=== PATIENT | male | born 1980 | race Caucasian/White ===

== ENCOUNTER 2017-10-27 09:03 | Emergency (ER) | payer BC ==
--- NOTE | 2017-10-27 09:11 | EDM.PDOC ---
ED HPI GENERAL MEDICAL PROBLEM - General Chief Complaint: Flank Pain Stated Complaint: BACK PAIN Time Seen by Provider: 10/27/17 09:11 Source of Information: Reports: Patient - History of Present Illness INITIAL COMMENTS - FREE TEXT/NARRATIVE: HISTORY AND PHYSICAL: History of present illness: [Patient presents with 8 out of 10 left flank pain radiating to the groin and around his abdomen for several hours prior to arrival no fever nausea vomiting chills sweats ] Review of systems: As per history of present illness and below otherwise all systems reviewed and negative. Past medical history: As per history of present illness and as reviewed below otherwise noncontributory. Surgical history: As per history of present illness and as reviewed below otherwise noncontributory. Social history: No reported history of drug or alcohol abuse. Family history: As per history of present illness and as reviewed below otherwise noncontributory. Physical exam: HEENT: Atraumatic, normocephalic, pupils reactive, negative for conjunctival pallor or scleral icterus, mucous membranes moist, throat clear, neck supple, nontender, trachea midline. Lungs: Clear to auscultation, breath sounds equal bilaterally, chest nontender. Heart: S1S2, regular, negative for clicks, rubs, or JVD. Abdomen: Soft, nondistended, nontender. Negative for masses or hepatosplenomegaly. Negative for costovertebral tenderness. Pelvis: Stable nontender. Genitourinary: Deferred. Rectal: Deferred. Extremities: Atraumatic, negative for cords or calf pain. Neurovascular unremarkable. Neuro: Awake, alert, oriented. Cranial nerves II through XII unremarkable. Cerebellum unremarkable. Motor and sensory unremarkable throughout. Exam nonfocal. Diagnostics: [CBC CMP UA culture blood culture CT abdomen pelvis with contrast ] Therapeutics: [1 L normal saline bolus Toradol 30 mg IV Zofran 8 mg IV Flomax Solu-Medrol [place] Zofran Filter kit Follow-up with primary care or urology ] Impression: [Flank pain]-resolved 4 mm stone left UVJ Definitive disposition and diagnosis as appropriate pending reevaluation and review of above. Left Flank Pain Score (Numeric/FACES): 10 - Related Data Allergies Allergy/AdvReac Type Severity Reaction Status Date / Time No Known Allergies Allergy Verified 10/27/17 09:14 Home Meds: Home Meds . [No Known Home Meds] 10/27/17 [History] ED ROS GENERAL - Review of Systems Review Of Systems: ROS reveals no pertinent complaints other than HPI. ED EXAM, GENERAL - Physical Exam Exam: See Below Course - Vital Signs Last Recorded V/S: Last Vital Signs Temp 97.7 F 10/27/17 10:50 Pulse 68 10/27/17 10:50 Resp 20 10/27/17 10:50 BP 92/57 L 10/27/17 10:50 Pulse Ox 95 10/27/17 10:50 - Orders/Labs/Meds Orders: Active Orders 24 hr Category Date Time Status CULTURE BLOOD [BC] Stat Lab 10/27/17 09:17 Received CULTURE BLOOD [BC] Stat Lab 10/27/17 09:25 Received CULTURE URINE [RM] Stat Lab 10/27/17 09:19 Received Blood Culture x2 Reflex Set [OM.PC] Stat Oth 10/27/17 09:11 Ordered Labs: Laboratory Tests 10/27/17 10/27/17 10/27/17 Range/Units 09:17 09:17 09:19 WBC 9.18 (4.0-11.0) K/uL RBC 5.22 (4.50-5.90) M/uL Hgb 15.8 (13.0-17.0) g/dL Hct 44.5 (38.0-50.0) % MCV 85.2 (80.0-98.0) fL MCH 30.3 (27.0-32.0) pg MCHC 35.5 (31.0-37.0) g/dL RDW Std Deviation 39.9 (28.0-62.0) fl RDW Coeff of Patricia 13 (11.0-15.0) % Plt Count 233 (150-400) K/uL MPV 10.00 (7.40-12.00) fL Neut % (Auto) 57.8 (48.0-80.0) % Lymph % (Auto) 33.4 (16.0-40.0) % Henry % (Auto) 7.0 (0.0-15.0) % Eos % (Auto) 1.3 (0.0-7.0) % Baso % (Auto) 0.5 (0.0-1.5) % Neut # (Auto) 5.3 (1.4-5.7) K/uL Lymph # (Auto) 3.1 H (0.6-2.4) K/uL Henry # (Auto) 0.6 (0.0-0.8) K/uL Eos # (Auto) 0.1 (0.0-0.7) K/uL Baso # (Auto) 0.1 (0.0-0.1) K/uL Nucleated RBC % 0.0 /100WBC Nucleated RBCs # 0 K/uL Sodium 141 (136-146) mmol/L Potassium 3.6 (3.5-5.1) mmol/L Chloride 108 (98-110) mmol/L Carbon Dioxide 21 (21-31) mmol/L BUN 15 (6.0-23.0) mg/dL Creatinine 1.3 (0.6-1.5) mg/dL Est Cr Clr Drug Dosing 75.27 mL/min Estimated GFR (MDRD) > 60.0 ml/min Glucose 181 H (60-110) mg/dL Calcium 9.8 (8.8-10.8) mg/dL Total Bilirubin 1.0 (0.1-1.5) mg/dL AST 28 (5-40) IU/L ALT 39 (8-54) IU/L Alkaline Phosphatase 65 (40-150) Troponin I < 0.10 (0.0-0.29) NG/ML Total Protein 6.7 (6.0-8.0) g/dL Albumin 4.4 (3.5-5.0) g/dL Globulin 2.3 (2.0-3.5) g/dL Albumin/Globulin Ratio 1.9 (1.3-2.8) Lipase 38 (7-80) U/L Urine Color YELLOW Urine Appearance CLEAR Urine pH 6.5 (5.0-8.0) Ur Specific [place] 1.020 (1.001-1.035) Urine Protein TRACE (NEGATIVE) mg/dL Urine Glucose (UA) NEGATIVE (NEGATIVE) mg/dL Urine Ketones NEGATIVE (NEGATIVE) mg/dL Urine Occult Blood TRACE-INTACT (NEGATIVE) Urine Nitrite NEGATIVE (NEGATIVE) Urine Bilirubin NEGATIVE (NEGATIVE) Urine Urobilinogen 1.0 (<2.0) EU/dL Ur Leukocyte Esterase NEGATIVE (NEGATIVE) Urine RBC 1-3 (0-2/HPF) Urine WBC 0-1 (0-5/HPF) Ur Epithelial Cells FEW (NONE-FEW) Amorphous Sediment MANY (NEGATIVE) Urine Bacteria FEW (NEGATIVE) Meds: Medications Discontinued Medications Generic Name Dose Route Start Last Admin Trade Name Jayjay PRN Reason Stop Dose Admin Sodium Chloride 1,000 mls @ 999 mls/hr 10/27/17 09:17 10/27/17 09:33 Normal Saline IV 10/27/17 10:17 999 mls/hr STAT ONE Administration Ketorolac Tromethamine 30 mg 10/27/17 09:17 10/27/17 09:34 Toradol IVPUSH 10/27/17 09:18 30 mg ONETIME ONE Administration Ondansetron HCl 8 mg 10/27/17 09:17 10/27/17 09:34 Zofran IVPUSH 10/27/17 09:18 8 mg ONETIME ONE Administration Departure - Departure Time of Disposition: 12:32 Disposition: Home, Self-Care 01 Condition: Good Clinical Impression: Ureteral stone - Discharge Information Referrals: PCP,None [Primary Care Provider] - Forms: ED Department Discharge Additional Instructions: Medication as prescribed Filter equipment to collect stone Return stone to urology or primary care for pathology testing Return to emergency room if fever intractable vomiting or intractable pain He has you are symptom-free the stone is passed at least into your bladder [facility] - Primary Care [address] [place] [address] [facility] - Urology [address] [place] [address] The following information is given to patients seen in the emergency department who are being discharged to home. This information is to outline your options for follow-up care. We provide all patients seen in our emergency department with a follow-up referral. The need for follow-up, as well as the timing and circumstances, are variable depending upon the specifics of your emergency department visit. If you don't have a primary care physician on staff, we will provide you with a referral. We always advise you to contact your personal physician following an emergency department visit to inform them of the circumstance of the visit and for follow-up with them and/or the need for any referrals to a consulting specialist. The emergency department will also refer you to a specialist when appropriate. This referral assures that you have the opportunity for follow-up care with a specialist. All of these measure are taken in an effort to provide you with optimal care, which includes your follow-up. Under all circumstances we always encourage you to contact your private physician who remains a resource for coordinating your care. When calling for follow-up care, please make the office aware that this follow-up is from your recent emergency room visit. If for any reason you are refused follow-up, please contact the [facility] emergency department at and asked to speak to the emergency department charge nurse. - My Orders Last 24 Hours: My Active Orders 10/27/17 09:11 Blood Culture x2 Reflex Set [OM.PC] Stat 10/27/17 09:17 CULTURE BLOOD [BC] Stat 10/27/17 09:19 CULTURE URINE [RM] Stat 10/27/17 09:25 CULTURE BLOOD [BC] Stat - Assessment/Plan Last 24 Hours: My Active Orders 10/27/17 09:11 Blood Culture x2 Reflex Set [OM.PC] Stat 10/27/17 09:17 CULTURE BLOOD [BC] Stat 10/27/17 09:19 CULTURE URINE [RM] Stat 10/27/17 09:25 CULTURE BLOOD [BC] Stat
[2017-10-27] MEDS ORDERED: Ondansetron 4 MG/2 ML SDV IVPUSH ONE (09:17)
[2017-10-27] MEDS ORDERED: Ketorolac 30 MG/ML SDV IVPUSH ONE (09:17)
[2017-10-27] MEDS ORDERED: Sodium Chloride 0.9% 1,000 ML IV ONE (09:17)
[2017-10-27 09:58] LABS: CHLORIDE,CL 108 mmol/L (98-110); SODIUM,NA 141 mmol/L (136-146)
--- NOTE | 2017-10-27 12:01 | CT ---
CT of the abdomen and pelvis without contrast. HISTORY: Pain TECHNIQUE: Axial CT images were obtained of the abdomen and pelvis without contrast. Coronal and sagi ttal reconstructions obtained. FINDINGS: The lung bases are clear, no pleural effusion. The liver, spleen, adrenal glands, and pancreas appear unremarkable for noncontrast examination. The gallbladder appears normal. There is no bulky retroperitoneal lymphadenopathy. No abdominal ascites. There is a 3 x 4 mm stone at the left ureterovesicular junction with mild proximal hydronephrosis. The large and small bowel are normal in caliber without evidence of obstruction. The appendix appears normal. There is no bulky pelvic lymphadenopathy. No free fluid. No free air. The urinary bladder ap pears normal. 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 L3 is a limbus type verte bra. IMPRESSION: 1. There is a 3 x 4 mm stone at the left ureterovesicular junction with mild proximal hydronephrosis.
[2017-10-27] MEDS ORDERED: Tamsulosin 0.4 MG Cap.ER PO ONE (12:30)
[2017-10-27] MEDS ORDERED: methylPREDNISolone Sodium Succinate 125 MG/2 ML SDV IVPUSH ONE (12:31)
== END 2017-10-27 13:25 | disposition home or self-care (01) ==
LOC: MW.ED 09:03
DX: N13.2 Hydronephrosis with renal and ureteral calculous obstruction (principal)
CPT/HCPCS: 36415; 74176; 80053; 81001; 83690; 84484; 85025; 87040; 87086; 96361; 96374; 96375; 99284; A9270; J1885; J2405; J2930; J7040; 99283